=== PATIENT | female | born 1990 | race Caucasian/White ===

== ENCOUNTER 2017-08-14 08:04 | Emergency (ER) | payer OTHER ==
[2017-08-14 08:09] VITALS: BP 122/78; RESP 18; TEMP 98.8
[2017-08-14] MEDS ORDERED: methylPREDNISolone SOD SUCCI 125 MG/2 ML VIAL IM ONE (08:24)
[2017-08-14] MEDS ORDERED: IPRATROPIUM-ALBUTEROL 3 ML NEB INHALATION STA (08:24)
--- NOTE | 2017-08-14 08:26 | ED ---
URI HPI - General Chief Complaint: Upper Respiratory Infection Stated Complaint: Congestion Time Seen by Provider: 08/14/17 08:11 Source: patient, RN notes reviewed, old records reviewed Mode of arrival: ambulatory Limitations: no limitations - History of Present Illness Initial Comments: Patient is a 26-year-old female with a history of asthma presents today with cough congestion for the past week. She reports it started out with what she thought was ALLERGIES earlier on the weekend. She states that over the past 4 days she's been trying [id number] medication with no relief. Her cough has been productive of bright green sputum. She has a visiting nurse. She states that she has no history of sick contacts that she is aware of. Patient states that she's had some pain with the left side of her ribs with coughing.Patient denies any recent fever, chills, chest pain, back pain, abdominal pain, nausea vomiting, numbness or tingling, dysuria or hematuria, constipation or diarrhea, headaches or visual changes, or any other current symptoms - Related Data Previous Rx's Medication Instructions Recorded Albuterol Inhaler [Ventolin Hfa 1 - 2 puff INHALATION RT-Q6H PRN 08/14/17 Inhaler] #1 inhaler Azithromycin [Zithromax Z-pack] 250 mg PO DIRECTED #6 tab 08/14/17 Promethazine/Dextromethorphan 5 ml PO TID #120 ml 08/14/17 [Phenergan DM Syrup] predniSONE 10 mg PO DAILY #15 tab 08/14/17 Allergies Allergy/AdvReac Type Severity Reaction Status Date / Time bee venom protein (honey bee) Allergy Unknown Verified 08/14/17 08:27 egg Allergy Anaphylaxis Verified 08/14/17 08:27 latex Allergy Rash/Hives Verified 08/14/17 08:27 Review of Systems ROS Statement: Those systems with pertinent positive or pertinent negative responses have been documented in the HPI. ROS Other: All systems not noted in ROS Statement are negative. Past Medical History Past Medical History: Asthma History of Any Multi-Drug Resistant Organisms: None Reported Additional Past Surgical History / Comment(s): wisdom teeth Past Anesthesia/Blood Transfusion Reactions: No Reported Reaction Past Psychological History: No Psychological Hx Reported Smoking Status: Never smoker Past Alcohol Use History: None Reported Past Drug Use History: None Reported - Past Family History Mother Family Medical History: No Reported History General Exam - General Exam Comments Initial Comments: This Patient is alert and oriented 26-year-old female. No significant distress. Limitations: no limitations General appearance: alert, in no apparent distress Head exam: Present: atraumatic, normocephalic, normal inspection Eye exam: Present: normal appearance, PERRL, EOMI. Absent: scleral icterus, conjunctival injection, periorbital swelling ENT exam: Present: normal exam, mucous membranes moist Neck exam: Present: normal inspection. Absent: tenderness, meningismus, lymphadenopathy Respiratory exam: Present: wheezes (Minimal wheezing and decreased lung sounds in the left lower lung field.). Absent: normal lung sounds bilaterally, respiratory distress, rales, rhonchi, stridor Cardiovascular Exam: Present: regular rate, normal rhythm, normal heart sounds. Absent: systolic murmur, diastolic murmur, rubs, gallop, clicks GI/Abdominal exam: Present: soft, normal bowel sounds. Absent: distended, tenderness, guarding, rebound, rigid Extremities exam: Present: normal inspection, full ROM, normal capillary refill. Absent: tenderness, pedal edema, joint swelling, calf tenderness Back exam: Present: normal inspection Neurological exam: Present: alert, oriented X3, CN II-XII intact Psychiatric exam: Present: normal affect, normal mood Skin exam: Present: warm, dry, intact, normal color. Absent: rash Course Vital Signs 08/14/17 08/14/17 08:05 08:29 Temperature 98.8 F Pulse Rate 78 84 Respiratory 18 Rate Blood Pressure 122/78 O2 Sat by Pulse 97 Oximetry Medical Decision Making - Medical Decision Making 26-year-old female presents for congestion and cough. Patient has a productive cough emergency Department. Mild wheezing noted. Given DuoNeb treatment IM Solu-Medrol chest x-ray. Chest x-rays a for any acute process. This time we' ll treat the Patient for bronchitis with azithromycin and steroids and inhaler. Discussed appropriate follow-up. All questions answered return parameters were discussed. - Radiology Data Radiology results: report reviewed Chest x-rays negative for any acute process. Disposition Clinical Impression: Bronchitis Disposition: HOME SELF-CARE Condition: Good Instructions: Upper Respiratory Infection (ED) Additional Instructions: Patient is to follow-up with primary care provider. Return to emergency department if any alarming signs or symptoms occur. Take the medications are prescribed. Prescriptions: Albuterol Inhaler [Ventolin Hfa Inhaler] 1 - 2 puff INHALATION RT-Q6H PRN #1 inhaler PRN Reason: Shortness Of Breath Azithromycin [Zithromax Z-pack] 250 mg PO DIRECTED #6 tab predniSONE 10 mg PO DAILY #15 tab Promethazine/Dextromethorphan [Phenergan DM Syrup] 5 ml PO TID #120 ml Is patient prescribed a controlled substance at d/c from ED?: No When asked, does pt state using other controlled substances?: No If prescribed controlled substance>3 days was MAPS reviewed?: No If opioid is for acute pain is fill amount 7 days or less?: No If Rx opioid, was Start Talking consent form obtained?: No Referrals: Valentine Martinez MD [Primary Care Provider] - 1-2 days Time of Disposition: 09:15
[2017-08-14 08:30] VITALS: PULSE 84
--- NOTE | 2017-08-14 09:03 | XR ---
EXAMINATION TYPE: XR chest 2V DATE OF EXAM: 08/14/2017 COMPARISON: NONE TECHNIQUE: PA and lateral views submitted. HISTORY: Pain FINDINGS: The lungs are clear and there is no pneumothorax, pleural effusion, or focal pneumonia. IMPRESSION: 1. No acute process.
== END 2017-08-14 09:25 | disposition home or self-care (01) ==
LOC: EC 08:04
DX: J40 Bronchitis, not specified as acute or chronic (principal); Z91.012 Allergy to eggs; Z91.018 Allergy to other foods; Z91.040 Latex allergy status
CPT/HCPCS: 94640; 71046; 99284; 96372; J2930

== ENCOUNTER 2018-07-10 12:56 | Emergency (ER) | payer OTHER ==
[2018-07-10 13:27] VITALS: BP 118/73; PULSE 98; RESP 16; TEMP 99.3
[2018-07-10] MEDS ORDERED: SODIUM CHLORIDE 0.9% 1,000 ML IV ONE (13:31)
[2018-07-10] MEDS ORDERED: ACETAMINOPHEN TAB 325 MG TAB PO STA (13:49)
[2018-07-10 14:17] LABS: Appearance,Urine Clear (Clear); Bilirubin,Urine Negative (Negative); Blood,Urine Negative (Negative); Color,Urine Light Yellow; Glucose,Urine (UA) Negative (Negative); Ketones,Urine Negative (Negative); Leukocyte Esterase,Urine Negative (Negative); Nitrite,Urine Negative (Negative); PH, Urine 6.5 (5.0-8.0); Protein,Urine Negative (Negative); Specific Gravity,Urine 1.012 (1.001-1.035); Urobilinogen,Urine <2.0 mg/dL (<2.0)
[2018-07-10 14:25] LABS: Basophils % (A) 0 %; Eosinophils # (A) 0.4 k/uL (0-0.7); Eosinophils % (A) 4 %; HCT 43.1 % (34.0-46.0); HGB 14.6 gm/dL (11.4-16.0); Lymphocytes # (A) 1.9 k/uL (1.0-4.8); Lymphocytes % (A) 19 %; MCH 32.2 pg (25.0-35.0); MCHC 33.8 g/dL (31.0-37.0); MCV 95.4 fL (80.0-100.0); Mean Platelet Volume 8.4; Monocytes # (A) 0.5 k/uL (0-1.0); Monocytes % (A) 5 %; Neutrophils # (A) 7.1 k/uL (1.3-7.7); Neutrophils % (A) 70 %; Platelet Count 229 k/uL (150-450); RBC 4.52 m/uL (3.80-5.40); RDW 12.3 % (11.5-15.5); WBC 10.1 k/uL (3.8-10.6)
[2018-07-10 14:32] LABS: ALT 33 U/L (9-52); AST 22 U/L (14-36); Albumin 4.5 g/dL (3.5-5.0); Alkaline Phosphatase 62 U/L (38-126); Anion Gap 9 mmol/L; Blood Urea Nitrogen 9 mg/dL (7-17); Calcium 9.9 mg/dL (8.4-10.2); Carbon Dioxide 23 mmol/L (22-30); Chloride 106 mmol/L (98-107); Glucose 95 mg/dL (74-99); Potassium 3.9 mmol/L (3.5-5.1); Sodium 138 mmol/L (137-145); Total Bilirubin 0.4 mg/dL (0.2-1.3)
--- NOTE | 2018-07-10 14:43 | ED ---
Abdominal Pain HPI - General Chief Complaint: Abdominal Pain Stated Complaint: Side Pain-7 wks Time Seen by Provider: 07/10/18 13:30 Source: patient Mode of arrival: ambulatory Limitations: no limitations - History of Present Illness Initial Comments: 27-year-old female presenting today for chief complaint of left sided abdominal pain in . Patient states that her last menstrual period was in May. She believes she is about 7 weeks . Pt states that last night she developed sharp pain in the left lower pelvic/abdominal region that radiated toward the left side. Denies any vaginal bleeding, vaginal discharge, fever, chills, dysuria urgency frequency vomiting diarrhea chest pain shortness breath lower extremity swelling. Patient states the pain persisted today increasing in intensity she presented for evaluation. Patient has not had an outpatient ultrasound to confirm intrauterine . Pt has established care with OBGYN Dr. Sapp. Pt remaining ROS (-), upon arrival pt appears well, VS within acceptable limits. No signs of acute distress - Related Data Home Medications Medication Instructions Recorded Confirmed No Known Home Medications 07/10/18 07/10/18 Allergies Allergy/AdvReac Type Severity Reaction Status Date / Time bee venom protein (honey bee) Allergy Unknown Verified 07/10/18 13:40 egg Allergy Anaphylaxis Verified 07/10/18 13:40 latex Allergy Rash/Hives Verified 07/10/18 13:40 Review of Systems ROS Statement: Those systems with pertinent positive or pertinent negative responses have been documented in the HPI. ROS Other: All systems not noted in ROS Statement are negative. Past Medical History Past Medical History: Asthma History of Any Multi-Drug Resistant Organisms: None Reported Additional Past Surgical History / Comment(s): wisdom teeth Past Anesthesia/Blood Transfusion Reactions: No Reported Reaction Past Psychological History: No Psychological Hx Reported Smoking Status: Never smoker Past Alcohol Use History: None Reported Past Drug Use History: None Reported - Past Family History Mother Family Medical History: No Reported History General Exam - General Exam Comments Initial Comments: General: The patient is awake and alert, in no distress, and does not appear acutely ill. Eye: +3 mm pupils are equal, round and reactive to light, extra-ocular mov ements are intact. No nystagmus. There is normal conjunctiva bilaterally. No signs of icterus. Ears, nose, mouth and throat: There are moist mucous membranes and no oral lesions. Neck: The neck is supple, there is no tenderness or JVD. Cardiovascular: There is a regular rate and rhythm. No murmur, rub or gallop is appreciated. Respiratory: Lungs are clear to auscultation, respirations are non-labored, breath sounds are equal. No wheezes, stridor, rales, or rhonchi. Gastrointestinal: Soft, non-distended, left lower pelvic tenderness to palpation, abdomen without masses or organomegaly noted. There is no rebound or guarding present. No CVA tenderness. Bowel sounds are unremarkable. Pelvic: Normal female hair pattern, no external lesions. Vaginal mucosa pink and well rugated. No blood in vaginal vault. Os closed. Small amount of white thin discharge. No odor. No adnexal or cervical motion tenderness. Musculoskeletal: Normal ROM, no tenderness. Strength 5/5. Sensation intact. Pulses equal bilaterally 2+. Neurological: A&O x 3. CN II-XII intact, There are no obvious motor or sensory deficits. Coordination appears grossly intact. Speech is normal. Skin: Skin is warm and dry and no rashes or lesions are noted. Psychiatric: Cooperative, appropriate mood & affect, normal judgment. Limitations: no limitations Course Vital Signs 07/10/18 13:25 Temperature 99.3 F Pulse Rate 98 Respiratory 16 Rate Blood Pressure 118/73 O2 Sat by Pulse 99 Oximetry Medical Decision Making - Medical Decision Making 27-year-old female presenting today for chief complaint of left-sided pelvic pain and Parkinson. Patient placed she is 7 weeks . US revealed viable intrauterine palms. Heart rate of 102, measuring 6 weeks gestation. No vaginal bleeding. Patient was given Tylenol she states this resolved the left lower pelvic pain. There is corpus luteal cyst on ultrasound. This could be a possible cause of patient's pain. No evidence of ectopic . Patient has denies concern for STI. Pending vaginal cultures. Patient requesting discharge stating by nursing station. This time I feel patient's ultrasound results physical examination and resolution of symptoms that patient is stable for discharge with outpatient [employer] follow-up. Patient has established care. Patient is agreeable return parameters as well as importance of outpatient follow-up. Patient discharged. While after discussing the case with time provider Dr. Mckenzie. - Lab Data Result diagrams: 07/10/18 14:05 07/10/18 14:05 Lab Results 07/10/18 07/10/18 07/10/18 Range/Units 13:45 14:05 14:05 WBC 10.1 (3.8-10.6) k/uL RBC 4.52 (3.80-5.40) m/uL Hgb 14.6 (11.4-16.0) gm/dL Hct 43.1 (34.0-46.0) % MCV 95.4 (80.0-100.0) fL MCH 32.2 (25.0-35.0) pg MCHC 33.8 (31.0-37.0) g/dL RDW 12.3 (11.5-15.5) % Plt Count 229 (150-450) k/uL Neutrophils % 70 % Lymphocytes % 19 % Monocytes % 5 % Eosinophils % 4 % Basophils % 0 % Neutrophils # 7.1 (1.3-7.7) k/uL Lymphocytes # 1.9 (1.0-4.8) k/uL Monocytes # 0.5 (0-1.0) k/uL Eosinophils # 0.4 (0-0.7) k/uL Basophils # 0.0 (0-0.2) k/uL Sodium 138 (137-145) mmol/L Potassium 3.9 (3.5-5.1) mmol/L Chloride 106 (98-107) mmol/L Carbon Dioxide 23 (22-30) mmol/L Anion Gap 9 mmol/L BUN 9 (7-17) mg/dL Creatinine 0.64 (0.52-1.04) mg/dL Est GFR (CKD-EPI)AfAm >90 (>60 ml/min/1.73 sqM) Est GFR (CKD-EPI)NonAf >90 (>60 ml/min/1.73 sqM) Glucose 95 (74-99) mg/dL Calcium 9.9 (8.4-10.2) mg/dL Total Bilirubin 0.4 (0.2-1.3) mg/dL AST 22 (14-36) U/L ALT 33 (9-52) U/L Alkaline Phosphatase 62 (38-126) U/L Total Protein 7.0 (6.3-8.2) g/dL Albumin 4.5 (3.5-5.0) g/dL HCG, Quant 13597.4 mIU/mL Urine Color Light Yellow Urine Appearance Clear (Clear) Urine pH 6.5 (5.0-8.0) Ur Specific [place] 1.012 (1.001-1.035) Urine Protein Negative (Negative) Urine Glucose (UA) Negative (Negative) Urine Ketones Negative (Negative) Urine Blood Negative (Negative) Urine Nitrite Negative (Negative) Urine Bilirubin Negative (Negative) Urine Urobilinogen <2.0 (<2.0) mg/dL Ur Leukocyte Esterase Negative (Negative) Trichomonas Ag (Rapid) (Negative) Blood Type Blood Type Recheck 07/10/18 07/10/18 Range/Units 14:05 14:25 WBC (3.8-10.6) k/uL RBC (3.80-5.40) m/uL Hgb (11.4-16.0) gm/dL Hct (34.0-46.0) % MCV (80.0-100.0) fL MCH (25.0-35.0) pg MCHC (31.0-37.0) g/dL RDW (11.5-15.5) % Plt Count (150-450) k/uL Neutrophils % % Lymphocytes % % Monocytes % % Eosinophils % % Basophils % % Neutrophils # (1.3-7.7) k/uL Lymphocytes # (1.0-4.8) k/uL Monocytes # (0-1.0) k/uL Eosinophils # (0-0.7) k/uL Basophils # (0-0.2) k/uL Sodium (137-145) mmol/L Potassium (3.5-5.1) mmol/L Chloride (98-107) mmol/L Carbon Dioxide (22-30) mmol/L Anion Gap mmol/L BUN (7-17) mg/dL Creatinine (0.52-1.04) mg/dL Est GFR (CKD-EPI)AfAm (>60 ml/min/1.73 sqM) Est GFR (CKD-EPI)NonAf (>60 ml/min/1.73 sqM) Glucose (74-99) mg/dL Calcium (8.4-10.2) mg/dL Total Bilirubin (0.2-1.3) mg/dL AST (14-36) U/L ALT (9-52) U/L Alkaline Phosphatase (38-126) U/L Total Protein (6.3-8.2) g/dL Albumin (3.5-5.0) g/dL HCG, Quant mIU/mL Urine Color Urine Appearance (Clear) Urine pH (5.0-8.0) Ur Specific [place] (1.001-1.035) Urine Protein (Negative) Urine Glucose (UA) (Negative) Urine Ketones (Negative) Urine Blood (Negative) Urine Nitrite (Negative) Urine Bilirubin (Negative) Urine Urobilinogen (<2.0) mg/dL Ur Leukocyte Esterase (Negative) Trichomonas Ag (Rapid) Negative (Negative) Blood Type B Positive Blood Type Recheck No Disposition Clinical Impression: , Ovarian cyst, Pelvic pain Disposition: HOME SELF-CARE Condition: Good Instructions (If sedation given, give patient instructions): Abdominal Pain in (ED) Additional Instructions: Please use medication as discussed. Please follow-up with OBGYN in the next 2-3 weeks. Please return to emergency room if the symptoms increase or worsen or for any other concerns. Is patient prescribed a controlled substance at d/c from ED?: No Referrals: Valentine Martinez MD [Primary Care Provider] - 1-2 days Time of Disposition: 15:45
--- NOTE | 2018-07-10 15:11 | US ---
EXAMINATION TYPE: US renals and bladder DATE OF EXAM: 07/10/2018 COMPARISON: None CLINICAL HISTORY: 27-year-old female Pain. LLQ pain x 1 day in ; patient stated had blood wi th diarrhea during this time TECHNIQUE: Multiple sonographic images of the kidneys and bladder are obtained. FINDINGS: Right Kidney: 11.0 x 6.2 x 4.2 cm Left Kidney: 11.2 x 6.3 x 4.1 cm No hydronephrosis on either side. Bladder: wnl Bilateral Jets seen: yes Post Void Residual Volume: not assessed on EC patient scheduled for OB US exam to follow IMPRESSION: No hydronephrosis.
[2018-07-10 15:19] LABS: HCG,Quantitative Serum 25725.4 mIU/mL
--- NOTE | 2018-07-10 15:20 | US ---
EXAMINATION TYPE: Ultrasound OB <= 14 week fetus DATE OF EXAM: 07/10/2018 2:57 PM COMPARISON: NONE CLINICAL HISTORY: 27-year-old female left sided pain, no confirmed IUP yet. LLQ pain with bloody diar xavier x 1 day per patient; EXAM PERFORMED: Transabdominal (TA with several additional images TV US for heart rate in bertha y ) FINDINGS: EXAM MEASUREMENTS: GESTATIONAL AGE / DATING Physician Established: Not yet established Dates by LMP: (7 weeks/0 days) EDC: 02/26/2019 Dates by First Scan: No previous US. Dates by Current Scan for: (6 weeks/0 days) EDC: 03/05/2019 MATERNAL ANATOMY Uterus: 10.3 x 6.7 x 4.8cm Right Ovary: 2.8 x 2.3 x 1.8cm; color flow is noted in bilateral ovary Left Ovary: 3.5 x 2.3 x 2.0cm Post CDS / Adnexa: wnl Presence of free fluid: no Presence of corpus luteal cyst: in left ovary = 1.4 x 1.2 x 1.0cm Presence of subchorionic bleed: no GESTATION / SURVEY CRL: 0.4cm (6 weeks/0 days) Yolk Sac (normal less than 6mm): 2.7mm Heart Rate: 102 bpm Rhythm: Normal IUP: Viable IUP Date of LMP: 05/22/2018 Beta HcG (if available): NA Single, live IUP, 6 weeks/0 days, EDC: 03/05/2019, [id number]. Bowel is noted at patient's LLQ pain. IMPRESSION: 1. Single live intrauterine with estimated gestational age of 7 weeks 0 days by LMP. Curren t ultrasound biometry is discordant and smaller at 6 weeks 0 days by crown-rump length. Correlate as to accuracy of recall of LMP. 2. heart rate at 102 BPM, normal at this gestational age. 3. 1.4 cm probable corpus luteum in the left ovary. 4. No pelvic free fluid.
[2018-07-12 14:24] LABS: C. trachomatis,PCR Negative (Neg,Equiv); Chlamydia trachomatis Source Vagina
== END 2018-07-10 15:51 | disposition home or self-care (01) ==
LOC: EC 12:56
DX: O34.81 Maternal care for other abnormalities of pelvic organs, first trimester (principal); N83.202 Unspecified ovarian cyst, left side; Z3A.01 Less than 8 weeks gestation of pregnancy; Z91.011 Allergy to milk products; Z91.030 Bee allergy status; Z91.040 Latex allergy status
CPT/HCPCS: 36415; 76770; 76801; 80053; 81003; 84702; 85025; 86900; 86901; 87070; 87205; 87491; 87808; 96360; 99284